=== PATIENT | female | born 1990 | race Caucasian/White ===

== ENCOUNTER 2024-09-07 10:06 | Emergency (ER) | payer OTHER ==
[~2024-09-07] VITALS: Ht 157.5 cm; Wt 64.0 kg
[2024-09-07] MEDS ORDERED: IBUP-1490 PO (11:54)
[2024-09-07] MEDS ORDERED: CYCL10TA9 PO (11:54)
[2024-09-07 12:08] VITALS: BP 120/73; TEMP 98.6; O2SAT 98
== END 2024-09-07 12:09 | disposition home or self-care (01) ==
LOC: ER 10:06
DX: M54.41 Lumbago with sciatica, right side (principal)